=== PATIENT | male | born 1955 | race Caucasian/White ===

== ENCOUNTER 2024-01-31 04:03 | Day surgery (SDC) | payer OTHER ==
[2024-01-28 12:24] VITALS: BMI 27.9
[2024-01-31] MEDS ORDERED: HEPARIN NA (PORCINE) 5,000 UNITS/ML 1ML VIAL ONE (07:15)
[2024-01-31] MEDS ORDERED: BUPIVACAINE HCL/PF 0.25% (2.5MG/ML) 10 ML VIAL ONE (07:15)
[2024-01-31] MEDS: ceFAZolin SODIUM 1 GM VIAL IVPB ONE ×2 (07:21→08:21)
[2024-01-31] MEDS: BUPIVACAINE HCL/PF 0.25% (2.5MG/ML) 10 ML VIAL IJ ONE ×3 (07:22→08:22)
[2024-01-31] MEDS ORDERED: ROCURONIUM BROMIDE 50 MG/5 ML VIAL ONE (08:05)
[2024-01-31] MEDS ORDERED: ONDANSETRON 4 MG/2 ML VIAL ONE (08:05)
[2024-01-31] MEDS ORDERED: PROPOFOL 20 ML ONE (08:05)
[2024-01-31] MEDS ORDERED: MIDAZOLAM HCL 2 MG/2 ML SINGLE DOSE VIAL ONE (08:05)
[2024-01-31] MEDS ORDERED: HYDROmorphone HCl 2 MG/ML VIAL ONE (08:05)
[2024-01-31] MEDS ORDERED: DEXAMETHASONE SOD PHOSPHATE 4 MG/1 ML VIAL ONE (08:05)
[2024-01-31] MEDS ORDERED: LIDOCAINE HCL/PF 2% SDV 5ML VIAL ONE (08:05)
[2024-01-31] MEDS ORDERED: SUGAMMADEX SODIUM 200 MG/2 ML VIAL ONE (08:06)
[2024-01-31] MEDS ORDERED: oxyCODONE HCL 5 MG TABLET PO PRN ×2 (08:11)
[2024-01-31] MEDS ORDERED: ONDANSETRON 4 MG/2 ML VIAL IVPUSH PRN (08:11)
[2024-01-31] MEDS ORDERED: ceFAZolin SODIUM 1 GM VIAL ONE (08:40)
[2024-01-31] MEDS ORDERED: ACETAMINOPHEN INJECTION 100 ML IVPB ONE (10:06)
[2024-01-31] MEDS ORDERED: SEVOFLURANE 250 ML BTL ONE (10:06)
[2024-01-31] MEDS ORDERED: ROCURONIUM BROMIDE 50 MG/5 ML SYRINGE ONE (10:09)
[2024-01-31] MEDS ORDERED: KETOROLAC TROMETHAMINE 30 MG/1 ML VIAL ONE (10:32)
[2024-01-31] MEDS: LACTATED RINGERS SOLUTION 1,000 ML IV SCH (12:30)
[2024-01-31 13:05] VITALS: RESP 20; TEMP 98.6
[2024-01-31 13:55] VITALS: BP 130/71; PULSE 90
== END 2024-01-31 13:50 | disposition home or self-care (01) ==
LOC: JASU-SURG 04:03
PROVIDERS: ATTEND Surgery
PROC: 0DQV4ZZ Repair Mesentery, Percutaneous Endoscopic Approach (ICD-10-PCS; principal; 2024-01-31 08:00)
DX: K40.30 Unilateral inguinal hernia, with obstruction, without gangrene, not specified as recurrent (principal)
CPT/HCPCS: 49650; S2900; 86850; 86900; 86901; 94760; C1781; J0131; J1644